=== PATIENT | male | born 1990 | race Caucasian/White ===

== ENCOUNTER 2018-03-09 21:57 | Emergency (ER) | payer MEDICAID ==
[~2018-03-09] VITALS: Wt 76.1 kg
[2018-03-09 22:01] VITALS: BP 137/93; PULSE 94; RESP 18
[2018-03-10] MEDS ORDERED: HYDR-3029 PO (01:44)
[2018-03-10] MEDS ORDERED: LORA10TA3 PO (01:50)
--- NOTE | 2018-03-10 01:50 | ERD ---
ER Documentation Chief Complaint Chief Complaint SOB X'S 5 DAYS HPI 27-year-old male presenting with shortness of breath times 5 days. Patient denies shortness of breath when talking to him and states that he actually has a dry mouth for the last 3 years. Patient has been seen multiple times by different providers with no resolution of symptoms. He denies any throat pain. Denies fever. Denies cough. Has not use any medications. Denies other medical problems. NKDA. Surgical history denies. Social history denies ROS All systems reviewed and are negative except as per history of present illness. Medications Home Meds Active Scripts Hydroxyzine Hcl* (Hydroxyzine Hcl*) 10 Mg Tablet, 10 MG PO Q6H, #30 TAB Prov:PASCALE LEMOS PA-C 03/10/18 Allergies Allergies: Coded Allergies: sulfamethoxazole (Verified Allergy, Unknown, 09/06/14) trimethoprim (Verified Allergy, Unknown, 09/06/14) PMhx/Soc History of Surgery: Yes (LEFT ELBOW) Anesthesia Reaction: No Hx Neurological Disorder: No Hx Respiratory Disorders: Yes (ASTHMA) Hx Cardiac Disorders: No Hx Psychiatric Problems: No Hx Miscellaneous Medical Probl: Yes (HTN, no med's) Hx Alcohol Use: No Hx Substance Use: Yes (marijuana) Hx Tobacco Use: Yes Smoking Status: Never smoker FmHx Family History: No diabetes, No coronary disease, No other Physical Exam Vitals Vital Signs Date Temp Pulse Resp B/P (MAP) Pulse Ox O2 O2 Flow FiO2 Time Delivery Rate 03/09/18 97.5 94 18 137/93 99 22:01 (108) Physical Exam GENERAL: The patient is well-appearing, well-nourished, in no acute distress HEENT: Atraumatic. Conjunctivae are pink. Pupils equal, round, and reactive to light. There is no scleral icterus. Tympanic membranes clear bilaterally. Oropharynx clear. No nystagmus or photophobia. NECK: C-spine is soft and supple. There is no meningismus. There is no cervical lymphadenopathy. CHEST: Clear to auscultation bilaterally. There are no rales, wheezes or rhonchi. HEART: Regular rate and rhythm. No murmurs, clicks, rubs or gallops. No S3 or S4. Result Diagram: 03/10/184003/10/1840 Results 24 hrs Laboratory Tests Test 03/10/18 00:41 03/10/18 01:15 White Blood Count 10.4 10^3/ul Red Blood Count 5.20 10^6/ul Hemoglobin 15.5 g/dl Hematocrit 44.8 % Mean Corpuscular Volume 86.2 fl Mean Corpuscular Hemoglobin 29.8 pg Mean Corpuscular Hemoglobin Concent 34.6 g/dl Red Cell Distribution Width 11.9 % Platelet Count 283 10^3/UL Mean Platelet Volume 9.4 fl Immature Granulocytes % 0.300 % Neutrophils % 61.3 % Lymphocytes % 29.6 % Monocytes % 6.4 % Eosinophils % 1.9 % Basophils % 0.5 % Nucleated Red Blood Cells % 0.0 /100WBC Immature Granulocytes # 0.030 10^3/ul Neutrophils # 6.4 10^3/ul Lymphocytes # 3.1 10^3/ul Monocytes # 0.7 10^3/ul Eosinophils # 0.2 10^3/ul Basophils # 0.1 10^3/ul Nucleated Red Blood Cells # 0.0 10^3/ul Sodium Level 142 mmol/L Potassium Level 4.3 mmol/L Chloride Level 101 mmol/L Carbon Dioxide Level 31 mmol/L Anion Gap 10 Blood Urea Nitrogen 14 mg/dl Creatinine 0.87 mg/dl Est Glomerular Filtrat Rate mL/min > 60 mL/min Glucose Level 83 mg/dl Calcium Level 9.7 mg/dl Total Bilirubin 0.2 mg/dl Direct Bilirubin 0.00 mg/dl Indirect Bilirubin 0.2 mg/dl Aspartate Amino Transf (AST/SGOT) 27 IU/L Alanine Aminotransferase (ALT/SGPT) 32 IU/L Alkaline Phosphatase 73 IU/L Total Protein 7.9 g/dl Albumin 4.5 g/dl Globulin 3.40 g/dl Albumin/Globulin Ratio 1.32 Lipase 47 U/L Urine Color COLORLESS Urine Clarity CLEAR Urine pH 7.0 Urine Specific Trosper 1.003 Urine Ketones NEGATIVE mg/dL Urine Nitrite NEGATIVE mg/dL Urine Bilirubin NEGATIVE mg/dL Urine Urobilinogen NEGATIVE mg/dL Urine Leukocyte Esterase NEGATIVE Niharika/ul Urine Hemoglobin NEGATIVE mg/dL Urine Glucose NEGATIVE mg/dL Urine Total Protein NEGATIVE mg/dl Procedures/MDM MDM: 27-year-old male presenting with dry mouth. Patient's blood work is within normal limits. Exam is non-concerning and vitals are stable. Patient is discharged with supportive medications and told to follow-up with primary care. She is recommended to see specialist. Patient is told symptoms change or worsen to immediately return to the ER. All questions answered at discharge. Departure Diagnosis: Primary Impression: Dry mouth Condition: Stable Patient Instructions: Parts of the Mouth Referrals: COMMUNITY CLINICS YOU HAVE RECEIVED A MEDICAL SCREENING EXAM AND THE RESULTS INDICATE THAT YOU DO NOT HAVE A CONDITION THAT REQUIRES URGENT TREATMENT IN THE EMERGENCY DEPARTMENT. FURTHER EVALUATION AND TREATMENT OF YOUR CONDITION CAN WAIT UNTIL YOU ARE SEEN IN YOUR DOCTORS OFFICE WITHIN THE NEXT 1-2 DAYS. IT IS YOUR RESPONSIBILITY TO MAKE AN APPOINTMENT FOR [facility]. IF YOU HAVE A PRIMARY DOCTOR --you should call your primary doctor and schedule an appointment IF YOU DO NOT HAVE A PRIMARY DOCTOR YOU CAN CALL OUR PHYSICIAN REFERRAL HOTLINE AT IF YOU CAN NOT AFFORD TO SEE A PHYSICIAN YOU CAN CHOSE FROM THE FOLLOWING [facility] [address] [facility]. [facility] [address] [facility] [facility] [address] [facility] [facility] [address] [facility]. [facility] [address] [facility]. [facility]. [address] Additional Instructions: FOLLOW UP WITH YOUR PRIMARY CARE PHYSICIAN TOMORROW.Return to this facility if you are not improving as expected. PASCALE LEMOS PA-C Mar 10, 2018 01:49
== END 2018-03-10 02:03 | disposition home or self-care (01) ==
LOC: FTE 21:57
DX: R68.2 Dry mouth, unspecified (principal); J45.909 Unspecified asthma, uncomplicated; I10 Essential (primary) hypertension
CPT/HCPCS: 36415; 80053; 81003; 83690; 85025; Z7502; 99283